=== PATIENT | male | born 1995 | race African-American/Black ===

== ENCOUNTER 2019-08-06 15:17 | Emergency (ER) | payer SELFPAY ==
--- NOTE | 2019-08-06 15:45 | RAD ---
RIGHT HAND THREE VIEWS: 08/06/19 INDICATION: History of right hand injury with swelling of the right fifth digit. FINDINGS: No acute fracture is evident. No radiopaque foreign bodies demonstrated. IMPRESSION: No acute fracture or subluxation demonstrated. POS: [facility]
== END 2019-08-06 16:21 | disposition home or self-care (01) ==
LOC: ERS 15:17
DX: S60.221A Contusion of right hand, initial encounter (principal); F41.9 Anxiety disorder, unspecified; W19.XXXA Unspecified fall, initial encounter